=== PATIENT | male | born 1945 | race Caucasian/White ===

== ENCOUNTER → 2017-05-16 | Day surgery (SDC) | payer MEDICARE, BC ==
[~2017-05-16] MED LIST: ARICEPT PO; ASPIRIN PO; ASTRAGALUS EXT100 GM MC; ATENOLOL25 GM PO; CERTAGEN PO; CHROMAX PLUS; CHROMIUM PICO400 MCG PO; CINNAMON; CINNAMON3.7 ML MC; CIPRO PO; CO Q; DHA100 MG PO; FISH OIL 1,0001 CAP PO; GINGER ROOT550 M1 PO; GINKO BILOBA PO; IBUPROFEN PO; LIPITOR PO; LIPOIC ACID1 GM PO; LISINOPRIL10 MG PO; METFORMIN HCL500 M1 PO; NAMENDA XR21 MG PO; OMEGA 3 FISH OI1 CAP PO; PRAVACHOL PO; TRAMADOL HCL50 M1 PO; TURMERIC500 MG PO; VICODIN ES 7.51 EAC1 PO; VINPOCETINE1 GM PO; VIT E PO; VITAMIN B 12 DAILY; VITAMIN B COMPLEX; VITAMIN C PO; VITAMIN D 4001 UDTAB PO; VITAMIN D31000 UNI1 PO; VITAMIN E400 UNI2 PO; VOLTAREN75 MG PO; ZOCOR PO; ZOCOR10 MG PO; [UNRECOGNIZED DRUG - OTHER]; [UNRECOGNIZED DRUG - OTHER]; [UNRECOGNIZED DRUG - OTHER] PO
--- NOTE | ~2017-05-16 | OR ---
Unit #: [id number] #: [id number] Patient: FAHEEM ROBLES JR [id number] [address] [place], [place] [address] [id number] O MR#: [id number] NAME: FAHEEM ROBLES JR ROOM: Date of Procedure: 05/16/2017 Admission Date: 05/16/2017 Surgeon: David Monte M.D. : 1945 Attending Physician: David Monte M.D. Referring Physician: David Monte M.D. Primary Care Physician: Billy Harkins M.D. OPERATIVE REPORT PREOPERATIVE DIAGNOSES Back pain, radiculopathy, spondylolisthesis, spinal stenosis, degenerative disk and spine disease. POSTOPERATIVE DIAGNOSES Back pain, radiculopathy, spondylolisthesis, spinal stenosis, degenerative disk and spine disease. PROCEDURE PERFORMED Lumbar epidural steroid injection with intravenous sedation and fluoroscopic guidance for needle localization. INDICATIONS FOR PROCEDURE The patient is a 71-year-old male with return of back and bilateral lower extremity pain due to previously mentioned diagnosis. He was last treated with epidural steroids for this 6 months ago and did well until he had a fall out of his truck, which flared his pains up and they gradually continued to return. Prior to that, he had done well for about 5 or 6 months with a number of epidural injections. DESCRIPTION OF PROCEDURE The patient was placed in a seated position. Standard monitors were applied. 1 mg Versed was given for sedation and anxiolysis, which were adequate. Vital signs remained stable. Sterile prep and drape then of lumbar area was performed. The skin then at the L5-S1 level was localized with 1% lidocaine. An 18-gauge Digital Caddiestead needle was then advanced via loss of resistance technique and fluoroscopic guidance in toward the epidural space. After confirming proper positioning with fluoroscopy and radiographic contrast, 80 mg of Depo-Medrol and 4 mL of 0.125% bupivacaine were deposited. The patient tolerated the procedure otherwise well and was discharged to the recovery room in stable condition. Dictated by... Toney Farley/terry TD: 05/16/2017 16:01 JOB #: [id number] Unit #: [id number] #: [id number] Patient: MARGARET FIGUEROA,FAHEEM Blakely OPERATIVE REPORT Page 1 of 1 X David Monte MD X PROCEDURE OPERATIVE NOTE
== END | disposition home or self-care (01) ==
LOC: CCSC 07:15
DX: M51.16 Intervertebral disc disorders with radiculopathy, lumbar region (principal); M43.16 Spondylolisthesis, lumbar region; M48.06 Spinal stenosis, lumbar region; I10 Essential (primary) hypertension; Z79.84 Long term (current) use of oral hypoglycemic drugs; Z79.899 Other long term (current) drug therapy
CPT/HCPCS: J1040; J2250

== ENCOUNTER → 2017-05-23 | Day surgery (SDC) | payer MEDICARE, BC ==
--- NOTE | ~2017-05-23 | OR ---
Unit #: [id number] #: [id number] Patient: FAHEEM ROBLES [id number] [address] [place], [place] [address] [id number] O MR#: [id number] NAME: FAHEEM ROBLES ROOM: Date of Procedure: 05/23/2017 Admission Date: 05/23/2017 Surgeon: David Monte M.D. : 1945 Attending Physician: David Monte M.D. Primary Care Physician: Billy Harkins M.D. OPERATIVE REPORT PREOPERATIVE DIAGNOSES Back pain, radiculopathy, spinal stenosis, spondylolisthesis, degenerative disk disease. POSTOPERATIVE DIAGNOSES Back pain, radiculopathy, spinal stenosis, spondylolisthesis, degenerative disk disease. PROCEDURE PERFORMED Lumbar epidural steroid injection with intravenous sedation and fluoroscopic guidance for needle localization. INDICATIONS FOR PROCEDURE The patient is a 71-year-old male with return of back and bilateral lower extremity pain due to previously mentioned nonsurgical pathology. Most significant pathology at the L5-S1 level. Epidural steroids have been very helpful. He has failed other conservative measures. Last injection was completed about 7 months ago. He had repeat injection done then in a week ago, which resulted in greater than 50% settling of his back and leg pain. He does have pain in both of his lower extremities. It usually settled with the epidural, so we are going to proceed with a second injection at this point. In the past, the patient has had about 2 or 3 injections to maximum improvement. If he does fine with this, we will hold on further injections. DESCRIPTION OF PROCEDURE The patient was placed in the seated position. Standard monitors were applied. 1 mg of versed was given for sedation and anxiolysis, which were adequate. Vital signs remained stable. Sterile prep and drape then of the lumbar area was performed. The skin then at the L4 level was localized with 1% lidocaine. An 18-gauge Talento al Aulatead needle was then advanced via loss of resistance technique and fluoroscopic guidance in toward the epidural space. After confirming proper positioning with fluoroscopy and radiographic contrast, 80 mg of Depo-Medrol and 4 mL of 0.125% bupivacaine were deposited. The patient tolerated the procedure otherwise well and was discharged to the recovery room in stable condition. Dictated by... David Monte M.D. Unit #: [id number] #: [id number] Patient: FAHEEM ROBLES LHP/modl TD: 05/23/2017 16:45 JOB #: [id number] OPERATIVE REPORT Page 1 of 1 X David Monte MD X PROCEDURE OPERATIVE NOTE
== END | disposition home or self-care (01) ==
LOC: CCSC 06:58
DX: M51.16 Intervertebral disc disorders with radiculopathy, lumbar region (principal); M48.06 Spinal stenosis, lumbar region; M43.16 Spondylolisthesis, lumbar region; I10 Essential (primary) hypertension; E11.9 Type 2 diabetes mellitus without complications; Z79.84 Long term (current) use of oral hypoglycemic drugs; Z79.891 Long term (current) use of opiate analgesic; Z79.899 Other long term (current) drug therapy
CPT/HCPCS: J1040; J2250